=== PATIENT | male | born 1980 | race Caucasian/White ===

== ENCOUNTER 2017-10-19 11:12 | Emergency (ER) | payer SELFPAY ==
[2017-10-19] MEDS: CYCLOBENZAPRINE 10 MG TAB PO (12:15)
[2017-10-19] MEDS: KETOROLAC 60 MG/2 ML VIAL (J1885) IM (12:23)
== END 2017-10-19 13:34 | disposition home or self-care (01) ==
LOC: M ED 11:12
DX: M54.41 Lumbago with sciatica, right side (principal); M48.07 Spinal stenosis, lumbosacral region; G61.0 Guillain-Barre syndrome
CPT/HCPCS: J1885